=== PATIENT | male | born 1995 | race African-American/Black ===

== ENCOUNTER 2020-01-02 00:13 | Emergency (ER) | payer OTHER ==
[2020-01-02] MEDS ORDERED: Fluorescein Opthalmic Strip ONE (00:31)
[2020-01-02] MEDS ORDERED: Proparacaine 0.5% Opth 15 ML BOT ONE (00:31)
[2020-01-02] MEDS ORDERED: Acetaminophen 500 MG TAB ONE (00:58)
== END 2020-01-02 01:15 ==
LOC: EEVIPCON 00:13 → ERS 00:13
DX: S05.01XA Injury of conjunctiva and corneal abrasion without foreign body, right eye, initial encounter (principal); W22.8XXA Striking against or struck by other objects, initial encounter
CPT/HCPCS: 99283